=== PATIENT | female | born 1975 | race Hispanic/Latino ===

== ENCOUNTER 2020-12-04 10:51 | Emergency (ER) | payer OTHER ==
[2020-12-04 11:47] LABS: #Basophils 0.1 thou/uL (0.0-0.2); #Eosinphils 0.1 thou/uL (0.0-0.7); #Lymphocytes 1.8 thou/uL (1.20-3.40); #Monocytes 0.4 thou/uL (0.11-0.59); #Neutrophils 5.9 thou/uL (1.40-6.50); %Basophils 0.9 % (0.0-1.0); %Eosinophils 0.8 % (0.0-10.0); %Lymphocytes 21.5 % (21.0-51.0); %Monocytes 4.8 % (0.0-10.0); %Neutrophils 72.1 % (42.0-75.0); Hemoglobin 11.4 g/dL (12.0-16.0); Mean Corpuscular HGB CONC 29.4 g/dL (32.0-36.0); Mean Corpuscular Hemoglobin 25.6 pg (27.0-31.0); Mean Platelet Volume 7.6 fL (7.4-10.4); Platelet Count 245 thou/uL (130-400); RBC Distribution Width 12.8 % (11.5-14.5); Red Blood Cell (RBC) Count 4.45 mill/uL (4.20-5.40); White Blood Cell (WBC) Count 8.2 thou/uL (4.8-10.8)
[2020-12-04 11:48] LABS: INR-International Normal Ratio 0.9; PTT 27.6 sec (22.9-36.1); Prothrombin Time 12.5 sec (12.0-14.7)
[2020-12-04 11:56] LABS: Anisocytosis SLIGHT = 6-15 cells (100X) (0-5/hpf); Platelet Morphology Comment Appears Adequate
[2020-12-04 11:59] LABS: ALT (SGPT) 16 U/L (8-55); AST (SGOT) 21 U/L (5-34); Albumin 4.2 g/dL (3.5-5.0); Alkaline Phosphatase 51 U/L (40-110); Anion Gap 15 mmol/L (10-20); BUN (Urea Nitrogen) 16 mg/dL (7.0-18.7); Bilirubin, Total 0.4 mg/dL (0.2-1.2); Calc. Creatinine Clearance 0 mL/min (70-130); Calcium 9.5 mg/dL (7.8-10.44); Carbon Dioxide 26 mmol/L (22-29); Chloride 103 mmol/L (98-107); Globulin 3.4 g/dL (2.4-3.5); Glucose 97 mg/dL (70-105); Potassium 4.2 mmol/L (3.5-5.1); Protein, Total 7.6 g/dL (6.0-8.3); Sodium 140 mmol/L (136-145)
[2020-12-04] MEDS ORDERED: Sodium Chloride 0.9% 1,000 ML ONE (12:06)
[2020-12-04 12:22] LABS: Bilirubin Negative (Negative); Blood, Urine Trace (Negative); Clarity Clear (Clear); Glucose, Urine (Dipstick) Negative (Negative); Ketone, Urine Negative (Negative); Leukocyte Negative (Negative); Nitrite Negative (Negative); Protein, Urine (Dipstick) Negative (Neg-Trace); Specific Gravity, Urine 1.025 (1.005-1.030); Urobilinogen 0.2 mg/dL (Less than 2)
[2020-12-04] MEDS ORDERED: Aspirin Chewable 81 MG TAB ONE (12:26)
[2020-12-04 12:35] LABS: Bacteria/HPF Rare-Few HPF (None Seen); RBC/HPF 0-3 HPF (0-3); Squamous Epithelial 0-3 HPF (0-3); WBC/HPF 0-3 HPF (0-3)
== END 2020-12-04 14:42 | disposition short-term general hospital (02) ==
LOC: MADERS 10:51
DX: R20.1 Hypoesthesia of skin (principal); D64.9 Anemia, unspecified; R29.701 NIHSS score 1; R10.9 Unspecified abdominal pain; M79.89 Other specified soft tissue disorders
CPT/HCPCS: 36416; 70450; 74176; 80053; 81003; 81015; 83880; 84484; 85025; 85610; 85730; 93005; J7050

== ENCOUNTER 2021-08-25 11:48 | Emergency (ER) | payer OTHER ==
[2021-08-25] MEDS ORDERED: Albuterol Sulfate 2.5 mg/3 ml Neb ONE (12:33)
[2021-08-25] MEDS ORDERED: guaiFENesin/Codeine Phosphate 100 mg/10 mg 5 ml UD Cup ONE (12:33)
== END 2021-08-25 13:15 | disposition home or self-care (01) ==
LOC: MADERS 11:48
DX: T59.811A Toxic effect of smoke, accidental (unintentional), initial encounter (principal); J70.5 Respiratory conditions due to smoke inhalation; Y92.89 Other specified places as the place of occurrence of the external cause
CPT/HCPCS: 93005; 94640; J7611

== ENCOUNTER 2021-12-26 12:11 | Emergency (ER) | payer OTHER | END 2021-12-26 13:15 | disposition home or self-care (01) | LOC: MADERS 12:11 | DX: T22.211A Burn of second degree of right forearm, initial encounter (principal); T31.0 Burns involving less than 10% of body surface; L03.113 Cellulitis of right upper limb | CPT/HCPCS: 99283 ==